=== PATIENT | female | born 1990 | race Caucasian/White ===

== ENCOUNTER 2019-10-19 11:49 | Emergency (ER) | payer MEDICAID, SELFPAY ==
[~2019-10-19] VITALS: Ht 172.7 cm; Wt 104.3 kg
[2019-10-19 11:49] VITALS: BP_SYST 123
--- NOTE | 2019-10-19 11:49 | NUR ---
PT TRIAGED IN TENT, PT STATES THAT SHE IS HERE BECAUSE HER BROTHER (WHOM SHE IS LIVING WITH AT THIS TIME) TESTED + YESTERDAY. STATES SOB WITH SLIGHT FATIGUE, SPEAKING FULL SENTENCES. SHE RECENTLY CAME TO STAY WITH BROTHER FROM [place]. DR TORO NOTIFIED OF INFORMATION AND COVID TESTING WILL BE DONE. VSS
--- NOTE | 2019-10-19 12:05 | NUR ---
DR TORO EVALUATING PT IN TENT.
[2019-10-19 13:30] VITALS: BP_SYST 123
--- NOTE | 2019-10-19 13:30 | NUR ---
Patient given written and verbal discharge instructions and verbalizes understanding. ER MD discussed with patient the results and treatment provided. Patient in stable condition. ID arm band removed. Rx of NONE given. Patient educated on pain management and to follow up with PMD. Pain Scale 0/10. Opportunity for questions provided and answered. Medication side effect fact sheet provided.
== END 2019-10-19 13:30 | disposition home or self-care (01) ==
LOC: SED 11:49
DX: R06.00 Dyspnea, unspecified (principal); Z20.828 Contact with and (suspected) exposure to other viral communicable diseases
CPT/HCPCS: 99283; U0002